=== PATIENT | male | born 1945 | race Caucasian/White ===

== ENCOUNTER 2021-05-31 10:18 | Inpatient (IN) | payer MEDICARE ==
[2021-05-31] MEDS: Sodium Chloride 0.9% 1,000 ML IV SCH ×2 (11:32→19:53)
[2021-05-31 11:35] LABS: CORONAVIRUS COVID-19 NAA NEGATIVE (NEGATIVE)
[2021-05-31] MEDS ORDERED: Levofloxacin/Dextrose 5%-Water 750 MG in Premix Bag 1 BAG IV ONE (12:21)
[2021-05-31] MEDS ORDERED: cefTRIAXone 1 GM in Sodium Chloride 0.9% 50 ML IV ONE (12:21)
[2021-05-31] MEDS ORDERED: Sodium Chloride 0.9% 10 ML Syringe FLUSH PRN (13:18)
[2021-05-31] MEDS: Levofloxacin/Dextrose 5%-Water 500 MG in Premix Bag 1 BAG IV SCH (14:20)
[2021-06-01] MEDS: Sodium Chloride 0.9% 1,000 ML IV SCH ×3 (02:59→20:32)
[2021-06-01] MEDS: cefTRIAXone 1 GM in Sodium Chloride 0.9% 50 ML IV SCH (12:00)
[2021-06-01] MEDS: Levofloxacin/Dextrose 5%-Water 500 MG in Premix Bag 1 BAG IV SCH (13:17)
[2021-06-02] MEDS: Sodium Chloride 0.9% 1,000 ML IV SCH (04:32)
[2021-06-02] MEDS: cefTRIAXone 1 GM in Sodium Chloride 0.9% 50 ML IV SCH (13:09)
[2021-06-02] MEDS: Levofloxacin/Dextrose 5%-Water 500 MG in Premix Bag 1 BAG IV SCH (14:11)
[2021-06-03 07:29] VITALS: BP 126/63; PULSE 80
== END 2021-06-03 10:37 | disposition home or self-care (01) | DRG 194 ==
LOC: JP.ED 10:18 → JP.MS 13:14
PROVIDERS: ADMIT Internal Medicine; ATTEND Internal Medicine
DX: J18.9 Pneumonia, unspecified organism (principal); S27.321A Contusion of lung, unilateral, initial encounter; J13 Pneumonia due to Streptococcus pneumoniae; S22.42XA Multiple fractures of ribs, left side, initial encounter for closed fracture; Z16.29 Resistance to other single specified antibiotic; F17.200 Nicotine dependence, unspecified, uncomplicated; W19.XXXA Unspecified fall, initial encounter; L40.9 Psoriasis, unspecified; J44.9 Chronic obstructive pulmonary disease, unspecified; F17.210 Nicotine dependence, cigarettes, uncomplicated; Z20.822 Contact with and (suspected) exposure to COVID-19; E78.5 Hyperlipidemia, unspecified; N40.0 Benign prostatic hyperplasia without lower urinary tract symptoms; Z79.899 Other long term (current) drug therapy; Y92.009 Unspecified place in unspecified non-institutional (private) residence as the place of occurrence of the external cause; Z87.01 Personal history of pneumonia (recurrent); Z86.19 Personal history of other infectious and parasitic diseases; Z90.49 Acquired absence of other specified parts of digestive tract; Z90.89 Acquired absence of other organs
CPT/HCPCS: 0241U; 36415; 51798; 71250; 71250-26; 74176; 74176-26; 80048; 80053; 84484; 85025; 87070; 87077; 87184; 87186; 87205; 96365; 97110-GP; 97162-GP; 97530-GP; 99285; 99285-25; J0696; J1956; J7030

== ENCOUNTER 2021-12-17 20:40 | Inpatient (IN) | payer MEDICARE ==
[2021-12-17] MEDS ORDERED: Lactated Ringers 1,000 ML IV ONE (22:00)
[2021-12-17] MEDS ORDERED: cefTRIAXone 2 GM in Sodium Chloride 0.9% 50 ML IV ONE (22:30)
[2021-12-18] MEDS ORDERED: Sodium Chloride 0.9% 1,000 ML IV ONE ×3 (05:50→21:00)
[2021-12-18] MEDS ORDERED: Sodium Chloride 0.9% 250 ML IV ONE (05:55)
[2021-12-18] MEDS ORDERED: Sodium Chloride 0.9% 300 ML IV ONE (10:30)
[2021-12-18] MEDS ORDERED: Polyethylene Glycol 3350 Powder 238 GM Bot ONE (11:00)
[2021-12-18] MEDS ORDERED: Acetaminophen 325 MG Tab ONE (11:00)
[2021-12-18] MEDS ORDERED: Bisacodyl 5 MG Tab ONE ×2 (11:00)
[2021-12-18] MEDS ORDERED: Pantoprazole 40 MG Vial ONE ×2 (12:55)
[2021-12-18] MEDS ORDERED: cefTRIAXone 1 GM in Sodium Chloride 0.9% 50 ML IV ONE (21:05)
[2021-12-19] MEDS ORDERED: Norepinephrine Bit/D5W Premix 250 ML IV ONE ×3 (02:25→17:05)
[2021-12-19] MEDS ORDERED: Sodium Chloride 0.9% 1,000 ML IV ONE ×3 (06:00→21:00)
[2021-12-19] MEDS ORDERED: Pantoprazole 40 MG Vial IV ONE ×2 (08:40→21:07)
[2021-12-19] MEDS ORDERED: Acetaminophen 325 MG Tab PO ONE (09:35)
[2021-12-19] MEDS ORDERED: Bisacodyl 5 MG Tab PO ONE (11:45)
[2021-12-19] MEDS ORDERED: Furosemide 20 MG/2 ML VIAL IV ONE (21:20)
[2021-12-19] MEDS ORDERED: cefTRIAXone 1 GM in Sodium Chloride 0.9% 50 ML IV ONE (22:20)
[2021-12-20] MEDS ORDERED: Norepinephrine Bit/D5W Premix 250 ML IV ONE (01:11)
[2021-12-20] MEDS ORDERED: Lidocaine 1% with EPINEPHrine 1:100,000 50 ML MDV ONE (07:30)
[2021-12-20] MEDS ORDERED: Bupivacaine 0.5% 50 ML MDV ONE (07:30)
[2021-12-20] MEDS ORDERED: fentaNYL 100 MCG/2 ML SDV ONE (07:30)
[2021-12-20] MEDS ORDERED: Propofol 200 MG/20 ML SDV ONE ×2 (07:30)
[2021-12-20] MEDS ORDERED: ZINC OXIDE TP ONE (08:30)
[2021-12-20] MEDS ORDERED: COD LIVER OIL TP ONE (08:30)
[2021-12-20] MEDS ORDERED: Pantoprazole 40 MG Vial IV ONE ×2 (08:57→20:30)
[2021-12-20] MEDS ORDERED: Meropenem 500 MG in Sodium Chloride 0.9% 50 ML IV ONE (09:00)
[2021-12-20] MEDS ORDERED: Sodium Chloride 0.9% 1,000 ML IV ONE (11:40)
[2021-12-20] MEDS ORDERED: Potassium Phos in 0.9 % NaCl 15 MMOL in Premix Bag 1 BAG IV ONE ×4 (12:00→14:30)
[2021-12-20] MEDS ORDERED: Magnesium Sulfate/Water 50 ML IV ONE ×2 (13:00→19:00)
[2021-12-20] MEDS ORDERED: Linezolid 600 MG in Premix Bag 1 BAG IV ONE (14:30)
[2021-12-20] MEDS ORDERED: Polyethylene Glycol 3350 Powder 238 GM Bot ONE (16:00)
[2021-12-20] MEDS ORDERED: Bisacodyl 5 MG Tab ONE (16:00)
[2021-12-20] MEDS ORDERED: cefTRIAXone 1 GM in Sodium Chloride 0.9% 50 ML IV ONE (22:48)
[2021-12-21] MEDS ORDERED: Magnesium Sulfate/Water 50 ML IV ONE ×4 (01:00→19:00)
[2021-12-21] MEDS ORDERED: Furosemide 20 MG/2 ML VIAL IV ONE (08:00)
[2021-12-21] MEDS ORDERED: Pantoprazole 40 MG Vial IV ONE ×2 (09:00→21:40)
[2021-12-21] MEDS ORDERED: Potassium Chloride 20 MEQ Tab.ER ONE ×3 (09:00)
[2021-12-21] MEDS ORDERED: Linezolid 600 MG in Premix Bag 1 BAG IV ONE (13:40)
[2021-12-21] MEDS ORDERED: cefTRIAXone 1 GM in Sodium Chloride 0.9% 50 ML IV ONE (21:45)
[2021-12-22] MEDS ORDERED: Magnesium Sulfate/Water 50 ML IV ONE ×2 (01:00→07:00)
[2021-12-22] MEDS ORDERED: Linezolid 600 MG in Premix Bag 1 BAG IV ONE (02:30)
[2021-12-22] MEDS ORDERED: Pantoprazole 40 MG Vial IV ONE (08:45)
[2021-12-22] MEDS ORDERED: Potassium Chloride 20 MEQ Tab.ER PO ONE (09:15)
[2021-12-22] MEDS ORDERED: cefTRIAXone 1 GM in Sodium Chloride 0.9% 50 ML IV ONE (21:40)
[2021-12-23] MEDS ORDERED: Sodium Chloride 0.9% 1,000 ML IV ONE (07:30)
[2021-12-23] MEDS ORDERED: Potassium Chloride 20 MEQ Tab.ER PO ONE (09:00)
[2021-12-23] MEDS ORDERED: Pantoprazole 40 MG Tab.CR PO ONE (20:15)
[2021-12-24] MEDS ORDERED: Sodium Chloride 0.9% 1,000 ML IV ONE (01:32)
[2021-12-24] MEDS ORDERED: Pantoprazole 40 MG Tab.CR PO ONE (08:00)
[2021-12-24] MEDS ORDERED: Potassium Chloride 20 MEQ Tab.ER PO ONE (08:07)
[2021-12-25] MEDS ORDERED: Pantoprazole 40 MG Tab.CR PO ONE (08:36)
[2021-12-25] MEDS ORDERED: Potassium Chloride 20 MEQ Tab.ER PO ONE (08:36)
[2021-12-25] MEDS ORDERED: Magnesium Hydroxide 400 MG/5 ML Susp 30 ML Cup PO ONE (08:41)
[2022-01-12 02:23] LABS: ESTIMATED GFR 62 mL/min (>60)
[2022-01-12 12:44] LABS: ESTIMATED GFR 87 mL/min (>60)
[2022-01-13 08:03] LABS: ESTIMATED GFR 91 mL/min (>60)
[2022-01-13 09:10] LABS: ESTIMATED GFR 77 mL/min (>60)
[2022-01-13 09:54] LABS: ESTIMATED GFR 62 mL/min (>60)
[2022-01-14 11:43] LABS: ESTIMATED GFR 56 mL/min (>60)
[2022-01-14 11:44] LABS: TROPONIN I HIGH SENSITIVITY 11.5 pg/mL (<=60.3)
[2022-01-14 16:21] LABS: ESTIMATED GFR 69 mL/min (>60)
== END 2021-12-25 13:45 | DRG 853 ==
LOC: JP.ED 20:40 → JP.ZCENSUS 22:20 → UNDOADMIN 12-18 10:35 → UNDODISIN 12-25 13:45
PROVIDERS: ADMIT Internal Medicine; ATTEND Internal Medicine
PROC: 0JH606Z Insertion of Pacemaker, Dual Chamber into Chest Subcutaneous Tissue and Fascia, Open Approach (ICD-10-PCS; principal; 2021-12-20)
PROC: 02H63JZ Insertion of Pacemaker Lead into Right Atrium, Percutaneous Approach (ICD-10-PCS; 2021-12-20)
PROC: 02HK3JZ Insertion of Pacemaker Lead into Right Ventricle, Percutaneous Approach (ICD-10-PCS; 2021-12-20)
DX: A41.9 Sepsis, unspecified organism (principal); J18.9 Pneumonia, unspecified organism; K92.2 Gastrointestinal hemorrhage, unspecified; J44.0 Chronic obstructive pulmonary disease with (acute) lower respiratory infection; I49.5 Sick sinus syndrome; N40.0 Benign prostatic hyperplasia without lower urinary tract symptoms; E78.5 Hyperlipidemia, unspecified; E86.0 Dehydration; Z87.891 Personal history of nicotine dependence; Z90.49 Acquired absence of other specified parts of digestive tract; Z90.89 Acquired absence of other organs; W18.30XA Fall on same level, unspecified, initial encounter; Y92.009 Unspecified place in unspecified non-institutional (private) residence as the place of occurrence of the external cause
CPT/HCPCS: 36415; 71045; 71045-26; 80048; 80053; 80202; 80307; 82550; 82803; 83605; 83690; 83735; 83880; 84100; 84484; 85018; 85025; 85027; 85610; 85730; 86140; 86850; 86900; 86901; 86920; 86922; 87040; 90662; 93005; 93306; 94762; 97110-GP; 97162-GP; 97530-GP; 97535-GP; A9270-GY; C1898; C9113; G0008; J0696; J1940; J2020; J2185; J2704; J3010; J3370; J3475; J3490; J7030; J7040; J7050; J7120; U0002